=== PATIENT | female | born 1935 | race Caucasian/White ===

== ENCOUNTER 2019-07-30 09:06 | Emergency (ER) | payer MEDICARE ==
--- NOTE | 2019-07-30 10:49 | RAD ---
PELVIS 1 VIEW: Date: 07/30/2019 No overt fracture seen. Subtle fractures would be missed due to mild osteopenia and overlying gas and fecal material in the colon. The SI joints are roughly symmetrical. The symphysis shows no widening or offset. There is some mild joint space narrowing of the hips, left moreso than right. The pubic ri ngs appear intact. Scoliosis and degenerative change are prominent in the lower lumbar spine. IMPRESSION: No acute traumatic findings. POS: HOME
--- NOTE | 2019-07-30 10:50 | RAD ---
RIGHT RIBS WITH PA CHEST: Dated: 07/30/2019 Various views show no evidence or rib fracture. The lungs are clear. No pneumothorax or pleural effus ion was present. Heart normal in size. Aorta is tortuous and dilated, not uncommon in the age group. Scoliosis noted in the spine. Degenerative changes are present in each glenohumeral joint and the rig ht AC joint. IMPRESSION: No acute traumatic findings. POS: HOME
== END 2019-07-30 09:55 | disposition home or self-care (01) ==
LOC: BURERS 09:06
DX: M62.830 Muscle spasm of back (principal); W01.0XXA Fall on same level from slipping, tripping and stumbling without subsequent striking against object, initial encounter
CPT/HCPCS: 72170

== ENCOUNTER 2019-08-03 10:45 | Emergency (ER) | payer MEDICARE ==
--- NOTE | 2019-08-03 12:27 | CT ---
CT Abdomen Pelvis WO Con 08/03/2019 11:07 AM HISTORY: Right mid back pain after a fall 2 days ago. COMPARISON: None. Technique: Multiple contiguous axial CT images are obtained through the abdomen and pelvis without IV contrast. Coronal reformats are provided. FINDINGS: This examination is limited for the evaluation of solid organs and vascular structures due to the lac k of intravenous contrast. Evaluation of solid organ injury is limited due to lack of intravenous contrast. Lower Chest: Minimal linear scarring versus atelectasis is present at each lung base. No pleural effu mabel or pneumothorax is seen at either lung base. A hiatal hernia is present with the fundus of the stomach above the level of the hemidiaphragms. Abdomen: Liver: Grossly normal non-enhanced CT appearance. Gallbladder: Suggestion of increased density in the region of the fundus the gallbladder which may be related to gallbladder calculi and/or sludge. Pancreas: Grossly normal nonenhanced CT appearance. Spleen: Calcified granulomata. Adrenals: Grossly normal nonenhanced CT appearance. Kidneys: No renal calculi are visualized, and there is no evidence of hydronephrosis. Ureters: No ureteral calculus is seen.. Pelvis: Urinary bladder: Decompressed and not well evaluated, but no gross abnormality is appreciated. Reproductive Organs: Evidence of hysterectomy. Lymph Nodes: No enlarged lymph nodes. Bowel: Evidence of colonic diverticulosis involving the sigmoid colon with small amount retained feca l material seen throughout the colon. Loops of small bowel are normal in caliber. Appendix: The appendix is normal in caliber. Peritoneum: No free fluid, free air, or fluid collection. Retroperitoneum: within normal limits. Vessels: Vascular calcifications are seen in the abdominal aorta and in the iliac arteries.. Abdominal Wall: within normal limits. Bones: Multilevel degenerative changes are seen in the lower thoracic and lumbar spine. Left convex s coliosis lumbar spine is present. Narrowing of the intervertebral disc spaces is present at all levels of the lumbar spine with vacuum phenomenon also seen at multiple levels. The vertebral body he ights of the lumbar spine are within normal limits. However, there is a mild compression fracture involving the inferior endplate of the T10 vertebral body. The exact age is difficult to determine bu t may represent a more recent compression fracture given lucencies through the anterior inferior aspect of the vertebral body. Degree of height loss is approximately 10%. No additional compression f racture is appreciated. There is no subluxation seen involving the lower thoracic or lumbar spine. IMPRESSION: 1. Indeterminate age compression fracture inferior endplate T10 vertebral body. Although the exact ag e is indeterminate, this likely represents a more recent fracture. 2. Multilevel degenerative changes lumbar spine with left convex curvature lumbar spine. 3. Hiatal hernia. 4. No renal or ureteral calculi are seen bilaterally 5. Colonic diverticulosis. 6. Hysterectomy. 7. Question of sludge in the gallbladder lumen and/or gallbladder calculi. 8. Solid organ injury is difficult to evaluate due to lack of intravenous contrast. However, no gross abnormalities are seen, and there is no free fluid or free intraperitoneal gas seen in the abdomen or pelvis.
== END 2019-08-03 13:02 | disposition home or self-care (01) ==
LOC: BURERS 10:45
DX: S22.079A Unspecified fracture of T9-T10 vertebra, initial encounter for closed fracture (principal); W19.XXXA Unspecified fall, initial encounter
CPT/HCPCS: 74176